=== PATIENT | female | born 1935 | race Caucasian/White ===

== ENCOUNTER 2017-06-11 11:59 | Day surgery (SDC) | payer MEDICARE ==
[~2017-06-11] VITALS: Ht 167.6 cm; Wt 91.2 kg
[~2017-06-11 11:59] MED LIST: AMLO2.5T PO; ASPI1TAB69 PO; BISO5TAB5 PO; CLOR3.755 PO; FLUT1SPR9 EACH NARE; HYDR-3533 PO; HYDR25TA5 PO; LEVO.1 PO; LOSA25TA PO; PRIL20CA9 PO; VENL75TA PO
[2017-06-11] MEDS ORDERED: PROPOFOL 200 MG/20 ML AMP OTHER ONE (12:00)
[2017-06-11 12:45] VITALS: BP 154/88; PULSE 81; RESP 17; TEMP 98.1; O2SAT 98
[2017-06-11] MEDS ORDERED: MUPIROCIN 2% OINT 1 APPLIC/GM SYR NASAL SCH (13:30)
[2017-06-11] MEDS ORDERED: NS 1000 ML IV SCH (13:30)
[2017-06-11] MEDS ORDERED: CHLORHEXIDINE GLUCONATE 2 % 1 PACK (2 CLOTHS) TOPICAL SCH (13:30)
[2017-06-11] MEDS ORDERED: LORazepam 1 MG TAB SL SCH (13:30)
[2017-06-11] MEDS ORDERED: POVIDONE IODINE 5% (ANTISEPSIS KIT) 4 APPLICATIONS EACH NARE SCH (13:30)
[2017-06-11] MEDS ORDERED: CLAR10CA3 PO (13:39)
[2017-06-11] MEDS ORDERED: BISO5TAB5 PO (13:39)
[2017-06-11] MEDS ORDERED: NEUR400C PO (13:39)
[2017-06-11] MEDS ORDERED: ASPI-516 CHEW (13:39)
[2017-06-11] MEDS ORDERED: IPRA17I INH (13:39)
[2017-06-11] MEDS ORDERED: HYDR25TA5 PO (13:39)
[2017-06-11] MEDS ORDERED: NEUR100C PO (13:39)
[2017-06-11] MEDS ORDERED: AMLO5TAB2 PO (13:39)
[2017-06-11] MEDS ORDERED: PANT20 PO (13:39)
[2017-06-11] MEDS ORDERED: LOSA25TA PO (13:39)
[2017-06-11] MEDS ORDERED: LOSA50TA PO (13:39)
[2017-06-11] MEDS ORDERED: METOPROLOL TARTRATE 25 MG TAB PO PRN (13:45)
[2017-06-11] MEDS ORDERED: POVIDONE IODINE 5% (ANTISEPSIS KIT) 4 APPLICATIONS EACH NARE PRN (13:45)
[2017-06-11] MEDS ORDERED: VANCOMYCIN 1000 MG/NS 250 ML IV SCH ×2 (13:45)
[2017-06-11] MEDS ORDERED: ceFAZolin 2 GM PREMIX 50 ML IV SCH (13:45)
[2017-06-11] MEDS ORDERED: SODIUM CHLORID 0.9% 500 ML IV PRN (13:45)
[2017-06-11] MEDS ORDERED: CHLORHEXIDINE GLUCONATE 2 % 1 PACK (2 CLOTHS) TOPICAL PRN (13:45)
[2017-06-11] MEDS ORDERED: LACTATED RINGER'S 1000 ML IV PRN (13:45)
[2017-06-11 14:03] LABS: AUTOMATED NEUTROPHIL # 3.6 TH/MM3 (1.8-7.7); BASOPHIL # 0.1 TH/MM3 (0-0.2); BASOPHIL % 1.3 % (0.0-2.0); EOSINOPHIL # 0.3 TH/MM3 (0-0.4); EOSINOPHIL % 3.6 % (0.0-4.0); HEMATOCRIT 38.9 % (35.0-46.0); HEMOGLOBIN 13.1 GM/DL (11.6-15.3); LYMPH % 36.8 % (9.0-44.0); LYMPHOCYTE # 2.6 TH/MM3 (1.0-4.8); MEAN CELL VOLUME 89.4 FL (80.0-100.0); MEAN CORPUSCULAR HEMOGLOBIN 30.1 PG (27.0-34.0); MEAN CORPUSCULAR HGB CONC 33.6 % (32.0-36.0); MEAN PLATELET VOLUME 8.4 FL (7.0-11.0); MONO % 7.5 % (0.0-8.0); MONOCYTE # 0.5 TH/MM3 (0-0.9); NEUT % 50.8 % (16.0-70.0); PLATELET COUNT 251 TH/MM3 (150-450); RED BLOOD COUNT 4.36 MIL/MM3 (4.00-5.30); WHITE BLOOD COUNT 7.1 TH/MM3 (4.0-11.0)
[2017-06-11 14:07] LABS: PROTHROMBIN TIME - PATIENT 10.3 SEC (9.8-11.6)
[2017-06-11 14:16] LABS: BICARBONATE 33.2 MEQ/L (21.0-32.0); CALCIUM 9.5 MG/DL (8.5-10.1); CREATININE 0.69 MG/DL (0.50-1.00)
[2017-06-11] MEDS ORDERED: LIDOCAINE HCL 2% 50 ML VIAL ONE (17:48)
[2017-06-11] MEDS ORDERED: VANCOMYCIN 500 MG VIAL ONE (17:48)
[2017-06-11] MEDS ORDERED: ceFAZolin INJ 1,000 MG VIAL ONE (17:50)
[2017-06-11] MEDS ORDERED: VANCOMYCIN HCL 1000 MG VIAL ONE (17:50)
[2017-06-11] MEDS ORDERED: KETAMINE HCL 500 MG/10 ML VIAL ONE (18:13)
[2017-06-11] MEDS ORDERED: CLIN300C5 PO (18:54)
[2017-06-11] MEDS ORDERED: TRAM-388 PO (18:54)
[2017-06-11] MEDS ORDERED: ONDANSETRON HCL 4 MG/2 ML VIAL IV PUSH PRN (19:00)
[2017-06-11] MEDS ORDERED: SODIUM CHLORIDE 0.9% FLUSH 10 ML FLUSH IV FLUSH PRN (19:00)
[2017-06-11 20:00] VITALS: BP 137/95; PULSE 69; RESP 20; TEMP 98.4; O2SAT 98
[2017-06-11 21:00] VITALS: PULSE 72
[2017-06-11] MEDS ORDERED: traMADol/ACETAMINOPHEN 37.5/325 1 TAB PO PRN (21:30)
[2017-06-11] MEDS ORDERED: RESP: IPRATROPIUM 0.5 MG/2.5 ML NEB NEB PRN (21:45)
[2017-06-11 22:00] VITALS: PULSE 68
[2017-06-11] MEDS: SODIUM CHLORIDE 0.9% FLUSH 10 ML FLUSH IV FLUSH SCH (22:44)
[2017-06-11] MEDS: DIAZEPAM 2 MG TAB PO PRN (22:44)
[2017-06-11 23:00] VITALS: PULSE 64
[2017-06-12] VITALS (14 sets, daily range): BP systolic 116–151; BP diastolic 66–91; PULSE 60–75; RESP 18–19; TEMP 98–98.1; O2SAT 96–98
[2017-06-12] MEDS ORDERED: LEVOTHYROXINE SODIUM 100 MCG TAB PO SCH (06:00)
[2017-06-12] MEDS ORDERED: GABAPENTIN 100 MG CAP PO SCH (08:00)
[2017-06-12] MEDS: DIAZEPAM 2 MG TAB PO PRN (08:50)
[2017-06-12] MEDS ORDERED: LORATADINE 10 MG TAB PO SCH (09:00)
[2017-06-12] MEDS: HYDROCHLOROTHIAZIDE 25 MG TAB PO SCH ×2 (09:00→09:57)
[2017-06-12] MEDS ORDERED: LOSARTAN 50 MG TAB PO SCH (09:00)
[2017-06-12] MEDS ORDERED: VENLAFAXINE HCL XR 75 MG CAP PO SCH (09:00)
[2017-06-12] MEDS: SODIUM CHLORIDE 0.9% FLUSH 10 ML FLUSH IV FLUSH SCH (09:00)
[2017-06-12] MEDS ORDERED: amLODIPine BESYLATE 5 MG TAB PO SCH (09:00)
[2017-06-12] MEDS ORDERED: PANTOPRAZOLE SOD 20 MG DELAYED RELEASE TAB PO SCH (09:00)
[2017-06-12] MEDS ORDERED: ASPIRIN 81 MG CHEW TAB CHEW SCH (09:00)
[2017-06-12] MEDS ORDERED: BISOPROLOL FUMARATE 5 MG TAB PO SCH (09:00)
--- NOTE | 2017-06-12 12:53 | PD.CARD.PN ---
Subjective Subjective Remarks Doing well s/p generator change Objective Medications Current Medications Sodium Chloride 1,000 ml @ 30 mls/hr Q24H IV ; Start 06/11/17 at 13:30; Stop 06/12/17 at 11:57; Status DC Lorazepam (Ativan) 1 mg CONSTRUCTION SITE CROSSING GUARD SL Last administered on 06/11/17t 14:02; Start 06/11/17 at 13:30; Stop 06/12/17 at 11:57; Status DC Povidone Iodine (Betadine 5% Antisepsis Kit) 2 applic CONSTRUCTION SITE CROSSING GUARD EACH NARE ; Start 06/11/17 at 13:30; Stop 06/12/17 at 11:57; Status DC Mupirocin (Bactroban Nasal 2% Oint) 1 applic CONSTRUCTION SITE CROSSING GUARD NASAL ; Start 06/11/17 at 13:30; Stop 06/12/17 at 11:57; Status DC Chlorhexidine Gluconate (Chlorhexidine 2% Cloth) 3 pack CONSTRUCTION SITE CROSSING GUARD TOPICAL ; Start 06/11/17 at 13:30; Stop 06/12/17 at 11:57; Status DC Lactated Ringer's 1,000 ml @ 30 mls/hr Q24H PRN IV SEE LABEL COMMENTS; Start 06/11/17 at 13:45; Stop 06/12/17 at 11:57; Status DC Sodium Chloride 500 ml @ 30 mls/hr [id number] PRN IV SEE LABEL COMMENTS; Start at 13:45; Stop 06/12/17 at 11:57; Status DC Metoprolol Tartrate (Lopressor) 25 mg CONSTRUCTION SITE CROSSING GUARD PRN PO SEE LABEL COMMENTS; Start 06/11/17 at 13:45; Stop 06/12/17 at 11:57; Status DC Povidone Iodine (Betadine 5% Antisepsis Kit) 1 applic CONSTRUCTION SITE CROSSING GUARD PRN EACH NARE SEE LABEL COMMENTS; Start 06/11/17 at 13:45; Stop 06/12/17 at 11:57; Status DC Chlorhexidine Gluconate (Chlorhexidine 2% Cloth) 3 pack CONSTRUCTION SITE CROSSING GUARD PRN TOPICAL SEE LABEL COMMENTS; Start 06/11/17 at 13:45; Stop 06/12/17 at 11:57; Status DC Cefazolin Sodium/ Dextrose 50 ml @ 100 mls/hr CONSTRUCTION SITE CROSSING GUARD IV ; Start 06/11/17 at 13:45; Stop 06/12/17 at 11:57; Status DC Vancomycin HCl 1000 mg/Sodium Chloride 250 ml @ 250 mls/hr CONSTRUCTION SITE CROSSING GUARD IV ; Start 06/11/17 at 13:45; Stop 06/12/17 at 11:57; Status DC Lidocaine HCl (Xylocaine 2% Inj) 50 ml STK-MED ONCE .ROUTE ; Start 06/11/17 at 17:48; Stop 06/11/17 at 17:49; Status DC Vancomycin HCl (Vancomycin Inj) 500 mg STK-MED ONCE .ROUTE ; Start 06/11/17 at 17:48; Stop 06/11/17 at 17:49; Status DC Vancomycin HCl (Vancomycin Inj) 1,000 mg STK-MED ONCE .ROUTE ; Start 06/11/17 at 17:50; Stop 06/11/17 at 17:51; Status DC Cefazolin Sodium (Ancef Inj) 2,000 mg STK-MED ONCE .ROUTE ; Start 06/11/17 at 17 :50; Stop 06/11/17 at 17:51; Status DC Ketamine HCl (Ketalar Inj) 500 mg STK-MED ONCE .ROUTE ; Start 06/11/17 at 18:13 ; Stop 06/11/17 at 18:14; Status DC Ondansetron HCl (Zofran Inj) 4 mg Q4H PRN IV PUSH NAUSEA Last administered on 06/12/17 08:53; Start 06/11/17 at 19:00; Stop 06/12/17 at 11:57; Status DC Sodium Chloride (NS Flush) 2 ml BID IV FLUSH Last administered on 06/12/17 09: 00; Start 06/11/17 at 21:00; Stop 06/12/17 at 11:57; Status DC Sodium Chloride (NS Flush) 2 ml UNSCH PRN IV FLUSH FLUSH AFTER USING IV ACCESS ; Start 06/11/17 at 19:00; Stop 06/12/17 at 11:57; Status DC Tramadol/ Acetaminophen (Ultracet 37.5-325 Mg) 1 tab Q6H PRN PO PAIN SCALE 1 TO 10 Last administered on 06/12/17 00:36; Start 06/11/17 at 21:30; Stop at 11:57; Status DC Amlodipine Besylate (Norvasc) 5 mg DAILY PO Last administered on 06/12/17 09: 56; Start 06/12/17 at 09:00; Stop 06/12/17 at 11:57; Status DC Aspirin (Aspirin Chew) 81 mg DAILY CHEW Last administered on 06/12/17 09:58; Start 06/12/17 at 09:00; Stop 06/12/17 at 11:57; Status DC Gabapentin (Neurontin) 100 mg DAILYAC PO Last administered on 06/12/17 09:57; Start 06/12/17 at 08:00; Stop 06/12/17 at 11:57; Status DC Gabapentin (Neurontin) 400 mg HS PO ; Start 06/12/17 at 21:00; Stop 06/12/17 at 21:00; Status DC Loratadine (Claritin) 10 mg DAILY PO Last administered on 06/12/17 09:57; Start 06/12/17 at 09:00; Stop 06/12/17 at 11:57; Status DC Hydrochlorothiazide (Hydrodiuril) 25 mg DAILY PO ; Start 06/12/17 at 09:00; Stop 06/12/17 at 11:57; Status DC Pantoprazole Sodium (Protonix) 20 mg DAILY PO Last administered on 06/12/17 08 :50; Start 06/12/17 at 09:00; Stop 06/12/17 at 11:57; Status DC Losartan Potassium (Cozaar) 25 mg HS PO ; Start 06/12/17 at 21:00; Stop at 21:00; Status DC Losartan Potassium (Cozaar) 50 mg DAILY PO Last administered on 06/12/17 09:57 ; Start 06/12/17 at 09:00; Stop 06/12/17 at 11:57; Status DC Bisoprolol Fumarate (Zebeta) 5 mg DAILY PO Last administered on 06/12/17 09:57 ; Start 06/12/17 at 09:00; Stop 06/12/17 at 11:57; Status DC Levothyroxine Sodium (Synthroid) 100 mcg DAILY@0600 PO Last administered on 05:13; Start 06/12/17 at 06:00; Stop 06/12/17 at 11:57; Status DC Venlafaxine HCl (Effexor Xr) 75 mg Q12HR PO Last administered on 06/12/17 09: 57; Start 06/12/17 at 09:00; Stop 06/12/17 at 11:57; Status DC Diazepam (Valium) 2 mg DAILY PRN PO ANXIETY Last administered on 06/12/17 08: 50; Start 06/11/17 at 21:45; Stop 06/12/17 at 11:57; Status DC Ipratropium [place] (Atrovent Neb) 0.5 mg Q6HR NEB PRN NEB SHORTNESS OF BREATH ; Start 06/11/17 at 21:45; Stop 06/12/17 at 11:57; Status DC Vital Signs / I&O Vital Signs Date Time Temp Pulse Resp B/P (MAP) Pulse Ox O2 Delivery O2 Flow Rate FiO2 06/12/17 11:20 64 06/12/17 10:00 70 06/12/17 09:00 64 06/12/17 08:57 98.1 75 19 151/91 (111) 96 06/12/17 08:00 60 06/12/17 07:00 62 06/12/17 06:00 64 06/12/17 05:00 62 06/12/17 04:00 61 06/12/17 03:49 98.0 61 18 116/66 (83) 98 06/12/17 03:00 62 06/12/17 02:00 62 06/12/17 01:00 66 06/12/17 00:00 98.1 63 18 144/86 (105) 97 06/12/17 00:00 63 06/11/17 23:00 64 06/11/17 22:00 68 06/11/17 21:00 72 06/11/17 20:00 69 06/11/17 20:00 98.4 69 20 137/95 (109) 98 06/11/17 19:10 97 Room Air I/O 06/11/17 06/11/17 06/11/17 06/12/17 06/12/17 06/12/17 07:00 15:00 23:00 07:00 15:00 23:00 Intake Total 480 ml Output Total 800 ml Balance -320 ml Intake Oral 480 ml Output Urine Total 800 ml # Bowel Movements 0 Physical Exam GENERAL: NAD SKIN: Warm and dry. HEAD: Atraumatic. Normocephalic. EYES: Pupils equal and round. No scleral icterus. No injection or drainage. ENT: No nasal bleeding or discharge. Mucous membranes pink and moist. NECK: Trachea midline. No JVD. CARDIOVASCULAR: Regular rate and rhythm. RESPIRATORY: No accessory muscle use. Clear to auscultation. Breath sounds equal bilaterally. Incision clean dry and intact GASTROINTESTINAL: Abdomen soft, non-tender, nondistended. Hepatic and splenic margins not palpable. MUSCULOSKELETAL: Extremities without clubbing, cyanosis, or edema. No obvious deformities. NEUROLOGICAL: Awake and alert. No obvious cranial nerve deficits. Motor grossly within normal limits. Five out of 5 muscle strength in the arms and legs. Normal speech. PSYCHIATRIC: Appropriate mood and affect; insight and judgment normal. Laboratory Laboratory Tests Test 06/11/17 13:30 White Blood Count 7.1 TH/MM3 Red Blood Count 4.36 MIL/MM3 Hemoglobin 13.1 GM/DL Hematocrit 38.9 % Mean Corpuscular Volume 89.4 FL Mean Corpuscular Hemoglobin 30.1 PG Mean Corpuscular Hemoglobin Concent 33.6 % Red Cell Distribution Width 13.0 % Platelet Count 251 TH/MM3 Mean Platelet Volume 8.4 FL Neutrophils (%) (Auto) 50.8 % Lymphocytes (%) (Auto) 36.8 % Monocytes (%) (Auto) 7.5 % Eosinophils (%) (Auto) 3.6 % Basophils (%) (Auto) 1.3 % Neutrophils # (Auto) 3.6 TH/MM3 Lymphocytes # (Auto) 2.6 TH/MM3 Monocytes # (Auto) 0.5 TH/MM3 Eosinophils # (Auto) 0.3 TH/MM3 Basophils # (Auto) 0.1 TH/MM3 CBC Comment DIFF FINAL Differential Comment Prothrombin Time 10.3 SEC Prothromb Time International Ratio 1.0 RATIO Activated Partial Thromboplast Time 27.5 SEC Blood Urea Nitrogen 16 MG/DL Creatinine 0.69 MG/DL Random Glucose 96 MG/DL Calcium Level 9.5 MG/DL Sodium Level 141 MEQ/L Potassium Level 3.9 MEQ/L Chloride Level 104 MEQ/L Carbon Dioxide Level 33.2 MEQ/L Anion Gap 4 MEQ/L Estimat Glomerular Filtration Rate 81 ML/MIN Assessment and Plan Problem List: (1) AICD at end of battery life ICD Codes: Z45.02 - Encounter for adjustment and management of automatic implantable cardiac defibrillator (2) CHF (congestive heart failure) ICD Codes: I50.9 - Heart failure, unspecified (3) CAD (coronary artery disease) ICD Codes: I25.10 - Atherosclerotic heart disease of [place] coronary artery without angina pectoris (4) HTN (hypertension) ICD Codes: I10 - Essential (primary) hypertension Assessment and Plan 1) Generator change for EOL 2) Doing well 3) Plan discharge home today, follow up with Jose Werner DO Jun 12, 2017 12:53
--- NOTE | 2017-06-12 13:56 | EKG ---
Date Performed: 06/11/2017 Time Performed: 13:45:58 PTAGE: 82 years EKG: Probable atrial sensing and ventricular pacing Abnormal ECG PREVIOUS TRACING : 07/17/2011 05.59 Since previous tracing, no significant change. DOCTOR: Jamie Hampton Interpretating Date/Time 06/12/2017 13:56:26
[2017-06-12] MEDS ORDERED: GABAPENTIN 400 MG CAP PO SCH (21:00)
[2017-06-12] MEDS ORDERED: LOSARTAN 25 MG TAB PO SCH (21:00)
--- NOTE | 2017-06-23 11:30 | CATHPROC ---
[email or web address] HIS Report Study Information Study Number Admission Scheduled Start Study Start [id number] Jun 11 2017 11:59AM 06/11/2017 Jun 11 2017 5:14PM [place] [facility] Cardiac Pacer/ICD Admit Source Facility Department Other [facility] Physician and Clinical Staff Initial Dee Troncoso Link Trainer Mechanic Meera Pedro,RT(R) TECH2 Link Trainer Mechanic Divine Rees,JOSE MANUEL Other Anesthesia, FUEL MANAGEMENT HANDLER Recorder Teodora Mandujano ,BSN Recorder Sylvie Griffith,JOSE MANUEL Scrub Kimmy Pittman,BALL POINT SPLITTER TECH2 Equipment Time Network Desktop Support Specialist Description Size Mfg Part Number Used/Scraped 18:32 BIOTRONIK DEFIBRILLATOR, ITREVIA 7 HF-T [id number] Used DERMABOND, ADHESIVE SKIN [id number] 18:31 CORDIS/PACER * Used GLUE MINI *[id number] 18:31 MEDLINE IND[employer]ES SUTURE, STRIP PLUS 1/2" * Used *[id number] 18:31 MEDLINE PACER CHOI, LIMB * 2530 *[id number] Used [id number] 18:31 MEDLINE PACER PACK, PACER CUSTOM * Used *[id number] 18:07 Needle Sponge Count 1 1 Used 18:07 Needle Sponge Count 2 22 Used 18:07 Needle Sponge Count 20 200 Used SUTURE, 2-0 VICRYL [CT1] ([id number]) [id number] 18:31 [facility] BLANKET,WARM AIR CCL * Used *[id number] [facility] PAD, ELECTROSURGICAL 18:31 * [id number] *[id number] Used SURGICAL GROUNDING ORANGE Equipment Model, Serial, Lot Number and Expiration Data Description Model Number Serial Number Lot Number Expiration Date DEFIBRILLATOR, ITREVIA 7 HF-T [id number] 10-02-2018 Labs Hgb (g/dl) Hct (%) RBC (MIL/MM3) WBC (l/cumm) Platelets (thousands) 11.60-17.00 35.00-51.00 4.00-5.90 4.00-11.00 150.00-450.00 13.1 38.9 4.3 7.1 251 Glucose (mg/dl) BUN (mg/dl) Creatinine (mg/dl) BUN:Creatinine (1:x) 74.00-106.00 7.00-18.00 0.50-1.30 10.00-20.00 96 16 0.6 26.7 Na (meq/l) K (meq/l) Cl (meq/l) CO2 (mmol/L) Ca (mg/dl) 136.00-145.00 3.50-5.10 98.00-107.00 21.00-32.00 8.50-10.10 141 3.9 104 33.2 9.5 PT (sec) PTT (sec) INR (PTT:PT) 9.80-11.60 24.30-30.10 0.90-1.10 10.3 27.5 1 Medication Medication Total Dose (Bolus/Oral) Medication Total Dosage/Unit 2% XYLOCAINE 50 mL Medications (Bolus/Oral) Medication Time Given Dosage/Unit Administered By Reason 2% XYLOCAINE 06/11/2017 6:28:26 PM 50 mL Dee Vega For pain 50 mL 2% XYLOCAINE given in lab by Dee Vega via Subcutaneous. Reason: For pain. Medication (Drip) Medication Time Given Dosage/Unit Concentration/Unit Diluent (ml) Solution ANCEF 06/11/2017 5:53:31 PM 2 g 2 g ANCEF given in lab by Anesthesia, FUEL MANAGEMENT HANDLER via Peripheral IV. VANCOMYCIN DRIP 06/11/2017 5:55:40 PM 1 g 1 g VANCOMYCIN DRIP given in lab by Anesthesia, FUEL MANAGEMENT HANDLER via Peripheral IV. Initial Case Assessment Cardiovascular HR Rhythm NIBP Chest Pain 70 paced 137/87 0 Neurological State Oriented to time-place- Alert Moves all extremities person Respiration - General Respiration Rate SpO2 (%) O2 (lpm) (B/min) 14 95 0 Final Case Assessment Cardiovascular Rhythm NIBP Chest Pain sr 122/68 0 Neurological State Oriented to time-place- Alert Moves all extremities person Chronological Log Time Study Chronological Log 17:35:30 Patient arrived via Bed. 17:35:40 Patient Name, D.O.B, / Armband Verified By R.N. 17:35:45 Consent signed by the physician and the patient and verified by the [facility] staff. 17:35:48 Pre-op and post- op instructions given; patient acknowledges understanding of instructions. 17:35:52 Verbal Stimulation=2 Physical Stimulation=2 Airway=2 Respiration=2 TOTAL=8. (0=absent, 1=li mited, 2=present) 17:36:00 Patient Warmer Placed on the Table. 17:36:16 Disposable Defibrillator Pads Placed On Patient. 17:36:21 Javier Prominences Protected 17:37:01 Patient has been NPO for More than 6Hrs. 17:37:05 Skin Breakdown-none per patient 17:52:54 Anesthesia at bedside. Assumes care of patient. 17:53:31 2 g ANCEF given in lab by Anesthesia, FUEL MANAGEMENT HANDLER via Peripheral IV. 17:55:40 1 g VANCOMYCIN DRIP given in lab by Anesthesia, FUEL MANAGEMENT HANDLER via Peripheral IV. 17:57:24 A # 20 IV was noted in the Antecubital (right). 17:57:25 A # 20 IV was noted in the Antecubital (left). 17:57:27 History and physical on the chart or being dictated. 17:57:31 Table restraints applied according to hospital policy 17:57:34 Bovie ground pad applied to: left thigh First Sponge And Instrument Count Done by Divine Rees, JOSE MANUEL. 18:00:36 Hypo's: 1, Sponges: 20, Bovie/scratch: 2 Sutures: 3, Blades: 1, Instruments: 26, Syveck Patches: 0 18:06:07 Reference ECG taken 18:06:29 Left Upper Chest Prepped Times Two. 18:19:38 MD paged Assessment: Initial Case, HR=70 BPM, Rhythm=paced, TZCQ=432/87 mmhg, Chest Pain=0 18:19:48 Neurological: State=Alert, Ox3, NEW Respiration: Resp=14 B/min, SpO2=95 %, O2=0 lpm 18:24:04 MD responded 18:25:25 MD arrived. Time Out. Correct patient, procedure, procedure equipment, site and side verified with physicia n present. Time 18:28:05 concurred by MD, individual staff and FUEL MANAGEMENT HANDLER. Time Out #2 - Consents verified, patient in correct position, all results are labled and displa yed, safety precautions 18:28:16 taken, antibiotics administered. Time out concurred by MD, individual staff and FUEL MANAGEMENT HANDLER in procedu re 18:28:22 Case Start 18:28:26 50 mL 2% XYLOCAINE given in lab by Dee Vega via Subcutaneous. Reason: For pain. 18:28:52 Surgical Incision Made. 18::53 A pocket was created at the L Upper Chest. 18:29:13 A device was explanted. 18:29:27 Implant Procedure was performed. 18:29:35 A Bivent Removal . (Dual) 18:29:45 A Bivent ICD Implant . (Dual) 18:31:53 A DEFIBRILLATOR, ITREVIA 7 HF-T VVE-[id number] was connected and placed in the pocket. 18:33:34 Pocket flushed with antibiotic solution 18:40:52 The pocket was closed. Second Sponge And Instrument Count Done by Sylvie Griffith RN. 18:43:53 Hypo's: 1, Sponges: 20, Bovie/scratch: 2 Sutures: ~SUTURE~, Blades: 1, Instruments: ~INSTRU~, Syveck Patches: 0 The Final Sponge And Instrument Count Done by Sylvie Griffith RN. 18:49:06 Hypo's: 1, Sponges: 20, Bovie/scratch: 2 Sutures: 3, Blades: 1, Instruments: 26, Syveck Patches: 0 18:49:26 Steri-strips and a sterile dressing applied to site. 18:50:43 Case End 18:52:19 DOCU called. Spoke to Beata RICHARD 18:52:56 Bedside Report will be given. Assessment: Final Case, Rhythm=sr, QGNU=205/68 mmhg, Chest Pain=0 18:53:15 Neurological: State=Alert, Ox3, NEW 18:54:07 No case complications noted. 18:54:26 Implantable Device card placed in patient's chart. 18:54:29 Defibrillator and ground pads removed. Skin intact. 18:54:34 [facility]58 A Bivent ICD Implant . (Dual) gen change 19:22:15 Implant Procedure was performed. gen change End Study - Contrast Media Used In Study Contrast Total Opened (mL) Total Used (mL) Total Wasted (mL) Unspecified 0 0 0 End Study - Maximum Contrast Load Max Contrast Load (mL) 754.9 End Study - Radiation Exposure Fluoro Time (minutes) 0.0 End Study - Patient Disposition Complications Transferred To No Outpatient Bed
== END 2017-06-12 11:55 | disposition home or self-care (01) ==
LOC: HDOC 11:59 → HDIC 12:06 → HCIS 20:04 → HDOC 06-12 11:55
PROVIDERS: ATTEND Internal Medicine Interventional Cardiology
DX: Z45.02 Encounter for adjustment and management of automatic implantable cardiac defibrillator (principal); I11.0 Hypertensive heart disease with heart failure; I50.9 Heart failure, unspecified; I42.0 Dilated cardiomyopathy; I70.0 Atherosclerosis of aorta; R00.2 Palpitations; I44.7 Left bundle-branch block, unspecified; Z79.82 Long term (current) use of aspirin
CPT/HCPCS: 00530; 33264; 80048; 85025; 85610; 85730; 86850; 86900; 86901; 93005; C1882; J0690; J2405; J3370